=== PATIENT | female | born 1950 | race Caucasian/White ===

== ENCOUNTER 2017-05-28 11:44 | Emergency (ER) | payer OTHER ==
[~2017-05-28] VITALS: Ht 154.9 cm; Wt 56.7 kg
[2017-05-28] MEDS ORDERED: NAPROSYN500 MG PO ×3 (13:35→13:59)
== END 2017-05-28 14:07 | disposition home or self-care (01) ==
LOC: ER 11:44
DX: M25.462 Effusion, left knee (principal); M19.90 Unspecified osteoarthritis, unspecified site; Z88.2 Allergy status to sulfonamides

== ENCOUNTER → 2017-06-07 | Outpatient (CLI) | payer OTHER ==
[~2017-06-07] MED LIST: NAPROSYN500 MG PO
== END ==
LOC: RAD 15:42
DX: M17.12 Unilateral primary osteoarthritis, left knee (principal)

== ENCOUNTER → 2017-07-02 | Outpatient (CLI) | payer OTHER | LOC: MRI 06-22 13:09 | DX: S83.422A Sprain of lateral collateral ligament of left knee, initial encounter (principal); S82.142A Displaced bicondylar fracture of left tibia, initial encounter for closed fracture; S83.512A Sprain of anterior cruciate ligament of left knee, initial encounter; S82.402A Unspecified fracture of shaft of left fibula, initial encounter for closed fracture; S83.242A Other tear of medial meniscus, current injury, left knee, initial encounter; M17.12 Unilateral primary osteoarthritis, left knee; X58.XXXA Exposure to other specified factors, initial encounter; Y93.89 Activity, other specified; Y92.89 Other specified places as the place of occurrence of the external cause; Y99.8 Other external cause status ==

== ENCOUNTER 2021-06-06 21:58 | Emergency (ER) | payer MEDICARE ==
[~2021-06-06] VITALS: Ht 152.4 cm; Wt 47.6 kg
[2021-06-06 23:28] LABS: URINE BILIRUBIN 2+ (Negative); URINE BLOOD NEGATIVE (Negative); URINE CLARITY CLOUDY; URINE COLOR YELLOW; URINE GLUCOSE-RANDOM* NEGATIVE (Negative); URINE KETONES 1+ (Negative); URINE LEUKOCYTES-REFLEX NEGATIVE (Negative); URINE NITRITE-REFLEX NEGATIVE (Negative); URINE PROTEIN (DIPSTICK) 1+ (Negative); URINE SPECIFIC GRAVITY >= 1.030 (1.005-1.035)
[2021-06-06 23:33] LABS: ICTOTEST (BILI CONFIRMATORY) Positive (Negative)
[2021-06-06 23:36] LABS: AMORPHOUS URATES Many /LPF (None Seen); BACTERIA-REFLEX None Seen /HPF (None Seen); CALCIUM OXALATE 0-3 Few /LPF (None Seen); FINE GRANULAR CASTS 0-3 Few /LPF (None Seen); MUCUS 0-3 Light strn/LPF (None Seen); SQUAMOUS None Seen /LPF (0-3); URINE RBC None Seen /HPF (NONE SEEN); URINE WBC-REFLEX None Seen /HPF (0-5)
[2021-06-07 00:40] LABS: HEMATOCRIT 32.6 % (37.0-47.0); HEMOGLOBIN 11.2 gm/dL (12.0-15.0); MCH 34.6 pg (26.0-34.0); MCHC 34.3 g/dL (28.0-37.0); MCV 100.9 fL (80.0-100.0); RBC 3.23 mil/uL (4.20-5.00); RDW 15.1 % (10.5-14.5); WBC 7.6 thou/uL (4.0-11.0)
[2021-06-07 00:55] LABS: CALCIUM 8.3 mg/dL (8.5-10.1); CREATININE 0.8 mg/dL (0.6-1.0); POTASSIUM 3.6 mmol/L (3.5-5.1)
[2021-06-07 01:02] LABS: ALBUMIN 3.5 g/dL (3.4-5.0); TOTAL BILIRUBIN 1.3 mg/dL (0.2-1.0); TOTAL PROTEIN 6.7 g/dL (6.4-8.2)
--- NOTE | 2021-06-07 11:57 | EKG ---
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 : 1950 Requested By: Enrique García Order Number: [id number] MD: Antelmo Stacy Measurements Intervals [place] Rate: 83 P: -86 NM: 171 QRS: -4 QRSD: 91 T: 15 QT: 491 QTc: 577 Interpretive Statements Sinus or ectopic atrial rhythm Compared to ECG 02/14/2009 20:44:53 Ectopic atrial rhythm now present ST (T wave) deviation now present Sinus rhythm no longer present Electronically Signed On 06-07-2021 11:57:24 GLASS WASHER by Antelmo Stacy [email or web address] <ELECTRONICALLY SIGNED> By: Antelmo Stacy MD, [facility] 06/07/21 1157 2340 39 Antelmo Stacy MD, FACC /EPI
[2021-06-07 12:35] VITALS: BP 94/65
== END 2021-06-07 12:38 ==
LOC: ER 21:58
PROVIDERS: Emergency Medicine
DX: R42 Dizziness and giddiness (principal); Z20.822 Contact with and (suspected) exposure to COVID-19; F32.9 Major depressive disorder, single episode, unspecified; R41.0 Disorientation, unspecified; M13.861 Other specified arthritis, right knee; Z79.899 Other long term (current) drug therapy; Z88.2 Allergy status to sulfonamides

== ENCOUNTER 2021-06-07 12:59 | Inpatient (IN) | payer MEDICARE ==
[~2021-06-07] VITALS: Ht 157.5 cm; Wt 54.9 kg
[2021-06-07 14:39] VITALS: BP 103/58
[2021-06-07 15:12] LABS: CHOLESTEROL 129 mg/dL (<200); HDL CHOLESTEROL 62 mg/dL (>40); LDL CHOLESTEROL 59 mg/dL (<100); TC:HDL 2.1 Ratio (Not establshd); TRIGLYCERIDE 43 mg/dL (<150); VLDL 9 mg/dL (<40)
--- NOTE | 2021-06-07 16:08 | NUR ---
71 YR OLD FEMALE ARRIVES TO FLOOR VIA WC FROM ER. DROPPED OFF IN ER 1- PM BY SON KRISTEN WITH REPORTED ABDOMINAL PAIN AND DEPRESSION?. PT DENIES FEELING DEPRESSED DURING ADMIT INTERVIEW-DOES REPORT DECREASED APPETITE D/T RECENT ABDOMINAL PAIN AND STATES SHE "MAY HAVE" LOST WEIGHT. ADMIT WT 116. DOES STATE HAS HAD RECENT STRESS/GRIEF TO GRANDSON WHO SHE REPORTS KILLED HIMSELF RECENTLY. ALSO REPORTS SOME CONFLICT WITH SONS NEW STATING "SHE STRESSES ME OUT I DON'T LIKE HER" IS ORIENTED TO PERSON,PLACE-IDENTIFIES YEAR CORRECTLY AND DATE 06-06. FULL RANGE AFFECT DURING ADMIT INTERVIEW. DENIES SI/SH.NO NOTED OR REPORTED AV HALLUCINATIONS,PARANOIA OR PSYCHOSIS. GAIT UNSTEADY-LIMPING WITH REPORTED RIGHT KNEE PAIN D/T ARTHRITIS. ROLLER WALKER PROVIDED . PLACED ON FALLS PRECAUTIONS. OFFERED AND ACCEPTED FOOD FLUIDS ATE 100 PERCENT OF LUNCH PROVIDED AND LATER GIVEN ENSURE WHICH SHE COMPLETED
--- NOTE | 2021-06-07 16:39 | NUR ---
Met with patient and Dr. Melchor in office. Patient reports son, Delfino, dropped her off on Sunday and did not return. Patient is unsure why he dropped her off. Patient unable to follow most questions and scored a 4 on the SLUMS given by Dr. Melchor. The patient reports to having attended [employer] in , being raised in and having one marriage. The patient's is . He had multiple sclerosis and was unable to walk. 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 The patient reports having a daughter. She states her grandson completed suicide and that her granddaughter, Melissa, is in a really bad situation as told by her mother and doesn't have much time. The patient denies any alcohol and/or substance abuse. She states she has two sisters and that her eldest sister from brain cancer. The patient becomes tearful when talking about her sister's . The patient reports being Cheondoism but not attending quaker. The patient unable to verbalize living arrangements. She stated she would like to get an apartment.
[2021-06-07 18:30] VITALS: BP 98/41
[2021-06-07 19:04] LABS: FOLIC ACID 11.2 ng/mL (8.6-58.9)
--- NOTE | 2021-06-07 20:08 | NUR ---
Assumed care on 06/07/21 @ 1900, in bed awakens to voice, c/o worrying about where she will go when she discharges from the hospital. Theraputic 1:[address] Ba is the patient's PCP. Patient worried about DIL saying she needs to be in a jail and patient not wanting that level of care. Cooperated with assessment, HRRR, Lung sounds CTA bilat, ABD N x 4Q, Reports BM today. Anxiety and Depression present, tearful when discussing her family home life, Denies SI and HI. Will continue to monitor for safety as a high fall risk and comfort. Bed in low position, bed alarm set.
[2021-06-08 07:09] LABS: GLYCOHEMOGLOBIN (HGB A1C) 4.9 % (4.8-5.6)
[2021-06-08 09:22] VITALS: BP 93/52
--- NOTE | 2021-06-08 15:32 | EKG ---
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 : 1950 Requested By: Adonis Melchor Order Number: [id number] MD: Haresh Ortiz Measurements Intervals [place] Rate: 80 P: -18 CA: 147 QRS: 2 QRSD: 87 T: 33 QT: 362 QTc: 418 Interpretive Statements Sinus rhythm versus low atrial rhythm Poor R wave progression Borderline left atrial enlargement Nonspecific ST-T wave change Compared to ECG 06/06/2021 23:40:45 No significant change Electronically Signed On 06-08-2021 15:32:29 EDGE ROLLER by Haresh Ortiz [email or web address] <ELECTRONICALLY SIGNED> By: Haresh Ortiz MD 06/08/21 1532 1252 125 Haresh Ortiz MD /EPI
--- NOTE | 2021-06-08 16:21 | NUR ---
PATIENT HAS BEEN UP, AND OUT ON THE UNIT, AMBULATES WITH ASSIST OF ROLLER WALKER. PATIENT IS ALERT, AND ORIENTED X 3-4 ABLE TO VOICE NEED. SHE IS FORGETFUL, INTERMITTENT CONFUSSION NOTED. PATIENT TOOK MORNING MEDICATION WHOLE WITHOUT DIFFICULTY, SHE IS EATING MEALS, AND DRINKING FLUID WELL. PATIENT DENIES SUICIDAL/HOMICIDAL IDEATION, FOR DEPRESSION/ANXIETY, SHE STATES " IDON'T KNOW". PATIENT DENIES HAVING PHYSICAL PAIN. PATIENT TAKEN TO RADIOLOGY FOR CT-SCAN OF THE HEAD BY THIS COOK APPRENTICE, AND HAS SINCE RETURNED TO THE UNIT. PATIENT STATES SHE WISHES TO "STAY HERE WITH YOU GUYS, I DON'T WANT TO GO TO SNF". AFFECT IS FLAT/BLUNTED, MOOD IS EUTHYMIC. PATIENT PARTICIPATES IN GROUP THERAPY, INTERACTING WELL WITH STAFF/PEERS. NO SIGN OF ACUTE DISTRESS NOTED AT THIS TIME, WILL MONITOR FOR SAFETY.
--- NOTE | 2021-06-08 16:37 | NUR ---
Phone call with patient's son, Delfino. Delfino reports that he brought the patient in to the ER at her request as she expressed experiencing a "nervous breakdown" and needing someone to talk to. Delfino states the patient is homeless. He is unable to have the patient live with him as he currently resides in a 2 bedroom apartment with 5 people in it. Delfino is unemployed but will start working soon. Delfino reports the patient receives $161 a month in pension from the dad as well as $1200 a month from social security. Delfino is not the DPOA but interested in it. Delfino reported he wanted to talk to the patient's doctor, Dr. Ba, before committing to that. Delfino is interested in the patient getting assistance with medication and housing. Delfino does not want the patient's daughter, his sister, involved as he states he does not get along with her. Delfino provided his email address for the [employer] email.
[2021-06-08 19:22] VITALS: BP 104/62
--- NOTE | 2021-06-08 23:37 | NUR ---
ASSUMED CARE ON 06/08/21 @ 1900, IN BED, RESPONDED TO VOICE AND SAT UP, COOPERATING WITH ASSESSMENT AND MEDICATION ADMINISTRATION. REPORTS IS ENCOURAGED ABOUT HER DISCUSSIONS WITH DR. MOREJON AND THE PHLEBOTOMY INSTRUCTOR. DENIES SI/HI, VH/AH, IMPROVEMENT IN DEPRESSION AND REPORTS ONLY SLIGHT ANXIETY. A&OX3-4 WITH CONFUSION NOTED. TYLENOL 650 GIVEN FOR GENERAL PAIN. WANTS EGGS DELETED FROM HER MEAL TRAY, WILL CALL DIETARY WHEN THEY OPEN IN THE A.M.
[2021-06-09 09:31] VITALS: BP 108/60
--- NOTE | 2021-06-09 10:24 | NUR ---
Assess due to admit to [facility]. Visit with pt in day room. States breakfast was "very good." Intake trends since admit 40-100%, plus drank an ensure supplement. Thin stature, but no significant wasting indicated. States usual wt around 115 lb. Vitamin D deficiency, 6.1 and has supplementation ordered. Add 1 ensure daily, otherwise presents low nutrition risk.
--- NOTE | 2021-06-09 13:57 | H ---
[facility] [place] [address] HISTORY AND PHYSICAL Name: PACO QUIROGA Room #: 521A-A ADM IN M.R.#: [id number] Admission: 06/07/21 Attend Phys: Adonis Melchor DO Discharge: Date of : 50 Report #: [id number] THIS REPORT FOR: cc: Dmitry Ba MD, Neal A. MD Kerstein,Adonis Rodriguez DO ~ DATE OF SERVICE: 06/07/2021 INPATIENT PSYCHIATRIC EVALUATION ATTENDING PSYCHIATRIST: Adonis Melchor DO GAMBLING MONITOR: Brody Julian MD REASON FOR ADMISSION: Special note, the patient was reportedly dropped off by her son and he did not stick around. The patient reported she feels like she is having a mental breakdown. HISTORY OF PRESENT ILLNESS: This is a 71-year-old obviously demented female. We are completely lacking collateral at present other than that the patient is a primary care patient of Dr. Dmitry Ba. The patient has no major medical history. Reportedly, does not taking any prescription medications. The patient reported that she has had sadness, not feeling like herself. This has progressed over the last several months. In addition, she has noted herself crying uncontrollably at different points for no reason. She notes she does not take pleasure in things that she used to enjoy, biking and other activities. She also notes that her son was recently and she is not getting along with his . The patient reported to our nurse today that the son's wants her placed. The patient denies any plans to harm herself or others. She does note that intermittently she will feel confused and somewhat dizzy. She denies any pain, dizziness, chest pain, shortness of breath, or other symptoms in the Emergency Room last night, which was at 2305 PAST MEDICAL HISTORY: Psoriatic arthritis in her right knee, takes naproxen 500 mg b.i.d. at home. ALLERGIES: SULFA MEDICATIONS. SOCIAL HISTORY: No history of alcohol, tobacco, or recreational drug use. REVIEW OF SYSTEMS: A 12-point review of systems were done in the ER and was negative except for the psychiatric emotional concerns as noted. Weight for this patient is 52.617 kilograms with BMI of 21.2. LABORATORY DATA: Done in the ER, mostly showed the following: Hematology: She is anemic with hemoglobin and hematocrit 11.2 and 32.6, white count ____, [address] [address] HISTORY AND PHYSICAL Name: PACO QUIROGA Room #: 521A-A [facility] IN [facility]#: [id number] Admission: 06/07/21 Attend Phys: Adonis Melchor, Discharge: Date of : 50 Report #: [id number] platelet count 192. Chemistries: Sodium 134, potassium 3.6, chloride 105, bicarbonate 27, anion gap 12, BUN 12, creatinine 0.8, estimated GFR 71, calcium 8.3, total bilirubin 1.3, direct bilirubin 0.2, AST 14, ALT 17, alkaline phosphatase 56, CK 78. Troponin high sensitivity 94 initially just after midnight and late this morning, it came back at 99. NT-proBNP 93, total protein 6.7, albumin 3.5, triglycerides 43, cholesterol 129, LDL 59, HDL 62. The patient had a presentation remotely here in 2008. Urinalysis, culture was not triggered . She had proteinuria, ketonuria, bilirubinuria most notably. COVID-19 PCR was not detected. She did have an EKG done in the ER, sinus rhythm, QTc was slightly prolonged at 577, QT 491, ME interval 171. We will consider repeating this in another day or so, especially if we are considering any medications that can prolong the QTc. She is a FULL CODE. Today, the patient was a suboptimal historian. She reported she was raised in [place], [place]. Had 2 sisters, her oldest of brain cancer. She was , but her has . She has a grandson who committed suicide. She is of the Taoist jah, but does not actively practice. [facility] Mental Status Examination, the patient scored a 4, repeat of 4/30. The only thing she got was the day of the week, the year. She named 9 animals in a minute and she could identify the largest figure compared with 3 objects. Everything else was 0. Most certainly qualifies her for an advanced major neurocognitive disorder. PHYSICAL EXAMINATION: VITAL SIGNS: Today, temperature 36.9, pulse 79, respirations 12, BP 103/50, O2 sat 99%. MUSCULOSKELETAL: Somewhat frail, age-appearing female in yellow full shirt. The patient does have a grossly abnormal gait with bilateral leg weakness. We did give her a walker, but she is a high fall risk. MENTAL STATUS EXAMINATION: Well-developed, somewhat ill-appearing, bow-legged female, appearing stated age. Attention impaired. Concentration impaired. Speech normal in rate. Thought process: Linear and goal oriented. Thought content: focused on the present. Denied suicidal ideation. Denied homicidal ideation, auditory, visual or tactile hallucinations. Some helplessness, a little hopelessness. Memory grossly impaired for delayed recall, acute memory and other aspects. Insight and judgment were quite limited. Fund of knowledge is diminished. Her level of education is high school graduate. She denied being physically, sexually or emotionally abused throughout her life. It was [facility] [address] [place] [address] HISTORY AND PHYSICAL Name: PACO QUIROGA Room #: 521A-A ADM IN ..#: [id number] Admission: 06/07/21 Attend Phys: Adonis Melchor DO Discharge: Date of : 50 Report #: [id number] unclear to her if she has had a family history of dementia including Alzheimer's disease. FORMULATION: A 71-year-old female dropped off reportedly by her son. I did contact Dr. Ba's office. They gave me numbers for the son of [phone]. There was a second number that Dr. Ba himself relayed to me; however, there was no return calls initially. The son did call me back later in the day. DIAGNOSES: At this time, major neurocognitive disorder, likely due to Alzheimer's disease, advanced; unspecified depression; it sounds like she has major depressive disorder. Morbidities are arthritis, gait abnormality. PLAN: Admitted to Geriatric Psychiatry. Evaluate, stabilize, obtain collateral. Allergies are SULFA DRUGS. I placed her on Senna/Dpocusate 2 tabs PO BID. Otherwise, house PRNs. I will need to find out if Dr. Ba has worked her up for causes of dementia. I am not inclined to do a big workup if he has. We have concerns regarding her son and family, the patient being dropped off and not following continuity of caring for the mother. If I do not hear back from son tomorrow morning, I will consider notifying the authorities including [facility] that if there is a potential abandonment situation. The patient's insurance by the way is [employer] Medicare Senior Plan, which is a managed plan, so they will quickly deny coverage if this is just a alf stay. STRENGTHS: She is insured. WEAKNESSES: Family unable to contact at the moment. I do not know if she has a DPOA, documents, so largely psychosocial. Time spent on this case at least 60 minutes, greater than 50% of time was spent in review of records and coordination of care. <ELECTRONICALLY SIGNED> By: Adonis Melchor DO 06/09/21 1357 [id number] [id number] Adonis Melchor DO /nt
--- NOTE | 2021-06-09 16:12 | NUR ---
Email to [employer] for Medicaid for patient
--- NOTE | 2021-06-09 17:15 | NUR ---
PT ASSESSED AT START OF SHIFT. HAS BEEN CALM AND PLEASANT. SMILING AT TIMES. PARTICIPATED IN GROUP ACTIVITIES. APPETITE HAS BEEN GOOD AND TAKING SUPPLEMENT AT LUNCH.
[2021-06-09 19:21] VITALS: BP 137/71
--- NOTE | 2021-06-10 00:20 | NUR ---
At onset of overnight cashier pt was resting in bed sleeping. This shift pt was alert and oriented x3. Pt was compliant with medication and vital signs. Pt denied SI, HI and AVH. Pt's thought process was disorganized. Pt stated that she wants to go see her primary care physician and stated she could probably walk there from [place]. Pt stated that she understands her son wants to place her in a penitentiary, but she wants to be able to see mutliple options before they decide to place her somewhere. Pt's affect was constricted and speech was clear, however pt had a difficult time finding the right word. Fall precautions are in place. Will continue to monitor.
[2021-06-10 10:29] VITALS: BP 94/43
--- NOTE | 2021-06-10 16:20 | NUR ---
patient is alert and oriented x2, calm, pleasant, and cooperative. sat in the dining room, coloring her color books, good appetite. Patient used the walker to bathroom. Voided per toilet x2, had a BM yesterday, no pain.
--- NOTE | 2021-06-10 16:55 | NUR ---
Check in with patient. Patient doing well. Medicaid application completed with patient.
[2021-06-10 19:46] VITALS: BP 118/50
--- NOTE | 2021-06-10 23:24 | NUR ---
At onset of overnight stocker pt was sitting in bed awake. This shift pt was alert and oriented to self and place. Pt stated the date was January 05, 2022, but did state she was coloring something for her son for Apoorva's day. Pt denied SI, HI and AVH. Pt was compliant with medication. Pt's affect was constricted. Pt was mostly calm, pleasant and cooperative. Pt's speech was clear and tangential. Pt talked about still wanting to see her PCP Dr. Mckeon. Pt talked about her son applying for new jobs to be closer to her. Pt stated there isn't room for her at her son's house. Pt talked about maybe living with someone at her judaism or living in an empty house her cousin owns. Pt is a high fall risk. Fall precautions are in place. Will continue to monitor.
[2021-06-11 09:19] VITALS: BP 98/46
--- NOTE | 2021-06-11 11:46 | NUR ---
PATIENT CARE ASSUMED AT 0700 - IN ROOM WHEN APPROACHED. PLEASANT AND SOCIAL. STATED HAD GOOD SLEEP - STATED WAS HERE DUE TO INABILITY OF SON CARING FOR HER. HOPING SUITABLE PLACEMENT FOUND FOR HER. PATIENT AMBULATES WITH WALKER - HAS LIMP - DENIES ANY S/I OR H/I - CONFUSED ALERT 1-2 - ABLE TO TELL THIS FRIT COATER DAY AND MONTH. PATIENT COMPLIANT WITH MEDICATIONS - WILL CONTINUE TO MONITOR PATIENT FOR SAFETY AND ADDRESS ANY FURTHER CONCERNS.
[2021-06-11 20:03] VITALS: BP 107/44
--- NOTE | 2021-06-12 03:13 | NUR ---
At onset of overnight babysitter pt was sitting in day room watching TV and socializing with peers. This shift pt was oriented to self, date and place. Pt was compliant with medication and vital signs. Pt stated she had a bowel movement today. Pt shared that she had a good day and is in a good mood. Pt stated she has made some friends here and is working on coloring pages for other patients. Pt denied SI. Pt is a high fall risk. Fall precautions in place. Will continue to monitor.
[2021-06-12 07:32] VITALS: BP 91/42
[2021-06-12 09:15] VITALS: BP 91/42
--- NOTE | 2021-06-12 15:27 | NUR ---
Assumed pt care this morning from overnight shift. Pt presented pleasant and calm during this time, and was cooperative with cares. Pt was oriented to self and place only at this time and presented confused during assessment. Pt denied any depression and anxiety at this time, and shook head, stating now when asked if she had any suicidal or homicidal thoughts. Pt denied hallucinations at this time. Pt denied pain, but stated that her chest did ache when she moved, and that she had a family history of cardiac issues. Provider informed. Per provider report, after provider spoke to pt, pt stated that this was issue from several days ago and that she did not want follow up. Pt asked if her sade hooks, yarn, and out craft supplies that she had could be brought up to unit, but was informed that this was closed unit and that these presented risk to pt. Pt voiced understanding. Lung sounds clear. Bowel sounds active. Last BM 06/12/21. No further concerns.
[2021-06-12 19:12] VITALS: BP 109/60
--- NOTE | 2021-06-13 05:55 | NUR ---
patient isolative this shift. patient aox1 confused and forgetful. patient had a flat affect, poor eye contact, fair grooming and hygiene. patient in bed asleep at this time breathing regular and unlaboured.
[2021-06-13 08:08] VITALS: BP 105/46
[2021-06-13 09:15] VITALS: BP 105/46
[2021-06-13 09:54] VITALS: BP 105/46
--- NOTE | 2021-06-13 18:14 | NUR ---
Assumed pt care from overnight shift this am. Pt presented in calm and pleasant mood this morning, and was alert and oriented to self and place at this time. Pt denied depression and anxiety at this time. Pt also denied any si/hi at this time. Pt denied pain during assessment as well. Pt also stated no hallucinations during this time. Pt voiced wanting to get clothing out of locker, but clothing was inappropriate for unit as it obscured her yellow shift. Stated that she had an appointment with on and that her son would be here. Provider aware. Lung sounds clear. Bowel sounds active. Meds whole with no issue. Participated in groups with peers. No further concerns at this time.
[2021-06-13 19:40] VITALS: BP 105/46
[2021-06-13 22:39] VITALS: BP 134/88
--- NOTE | 2021-06-14 00:26 | NUR ---
PATIENT CARE WAS RESUMED AT 1900+6 PATIENT CARE WAS RESUMED AT 1900. SHE IS ALERT AND ABLE TO COMMUNICATE HER NEEDS AND CONCERN. LUNGS ARE CLEAR, BS ACTIVE X4 QUADS. SHE DENIES SI/AVH/HI. SHE IS CONTINIET OF BOWEL AND BLADDER. ABD IS SOFT, NON TENDER. SHE TOOK HER MEDS WHOLE. SHE IS HAPPY THAT SHE SPOKE WITH HER SON. BED IS LOW, LOCKED AND ALARMED. NO 0. PATIENT CARE WAS RESUMED AT 1900. SHE IS ALERT AND SHE AMBULATES. ABLE TO VERBALIZE SOME NEEDS. LUNGS ARE CLEAR, BS ACTIVE X4 QUADS. SHE IS CONTINIET OF BOWEL AND BLADDER. SHE TOOK HER MEDS WHOLE. DENIES PAINS.SI/AVH/HI. BED IS LOW, LOCKED. SHE IS HAPPY THAT SHE SPOKE WITH HER SON. SHE IS CALM AND COOPERATIVE WITH CARE. CONTINUE TO MONITOR
[2021-06-14 10:01] VITALS: BP 95/45
--- NOTE | 2021-06-14 10:32 | NUR ---
Referral faxed to: - [facility] ([facility], [facility], [facility], [facility], [facility], [facility], [facility], [facility], [facility], [facility], [facility])
--- NOTE | 2021-06-14 12:48 | NUR ---
Alert and orientated X 2. Denies SI/HI. Breath sounds clear. Reg HR auscultated. Color pink with brisk capillary refill and palpable peripheral pulses. Independent with voiding. Active bowel sounds over soft, rounded abdomen. Ambulates with walker with regular, steady gait. Participating in groups.
[2021-06-14 19:30] VITALS: BP 119/65
[2021-06-14 19:50] VITALS: BP 119/65
[2021-06-14 23:06] LABS: SYPHILIS AB Non Reactive (Non Reactive)
--- NOTE | 2021-06-15 | NUR ---
[facility] C[facility] WAS RESUM[facility] AT 1900. SHE IS AWAKE SITTING IN THE DINING AREA. LUNGS ARE CLEAR BS ACTIVE X4 QUAD. ABD IS SOFT AND NON TENDER. SHE IS ABLE TO VERBALLIZE HER NEEDS. SHE TOOK HER MEDS WHOLE AND DENIES PAINS/SI/AVH/HI. SHE AMBULATES WITH WALKER. CONTINIET OF BOWEL AND BLADDER. SHE IS VERY PLEASANT AND COOPERAIVE WITH CARE. BED IS LOW, LOCKED AND ALARMED.
--- NOTE | 2021-06-15 08:34 | NUR ---
Followup: eating 85-100% of meals. No new nutrition concerns, remains low nutrition risk
[2021-06-15 10:35] VITALS: BP 93/51
--- NOTE | 2021-06-15 10:37 | NUR ---
PLEASANT ON COOPERATIVE SO FAR THIS SHIFT-VISIBLE IN [place] ATTENDING SCHEDULED GROUPS AND SITS WITH FEMALE PEERS TO EAT MEALS. FULL RANGE AFFECT. DENIES SI/SH/HI. NO NOTED OR REPORTED ACUTE ANXIETY OR PSYCHOSIS. USING ROLLER WALKER TO GET AROUND UNIT AND GAIT IS STEADY WITH ASSISTIVE DEVICE. INDEPENDENT IN DRESSING,TOILETING AND FEEDING-DID REQUIRE ASSIST THIS AM WITH SHOWER/SHAMPOO. DENIES PAIN. ORIENTED TO PERSON-STATES IS AT "DR OFFICE-JUST WAITING FOR MY SON"
--- NOTE | 2021-06-15 16:31 | NUR ---
Phone message received from Afsaneh Lozano ([phone]), family member, regarding patient and placement of patient.
[2021-06-15 19:22] VITALS: BP 112/55
--- NOTE | 2021-06-16 04:37 | NUR ---
PATIENT CARE WAS RESUMED AT 1900. SHE IS ALERT AND ORIENTED. AMBULATES WITH WALKER. LUNGS ARE CLEAR BS ACTIVE X4 QUADS. SHE IS CONTINENT OF BOWEL AND BLADDER. SHE DENIES PAINS /SI/AVH/HI. SHE TOOK HER MEDS WHOLE. CO-OPERATIVE WITH CARE. NO CONCERN NOTED AT THIS TIME.BED IS LOW AND LOCKED. [id number] CHECK ONGOING. NON SKID SOCKS AND YELLOW TOP ON.
[2021-06-16 10:06] VITALS: BP 94/55
--- NOTE | 2021-06-16 11:03 | NUR ---
Alert and orientated to person and place. Denies SI/HI. Breath sounds clear. Reg HR auscultated. Color pink with brisk capillary refill and palpable peripheral pulses. No edema noted. Brief dry. Active bowel sounds over soft, flat abdomen. Ambulates with regular, steady gait with walker.
[2021-06-16 11:20] VITALS: BP 105/51
--- NOTE | 2021-06-16 15:10 | NUR ---
Phone call to [facility] to determine if the patient had been accepted. ARMANDO spoke to Jessi who reported that the facility has to wait until Sunday as the senior financial reporting analyst has to review and she is out until Sunday.
[2021-06-16 19:28] VITALS: BP 109/56
--- NOTE | 2021-06-17 05:01 | NUR ---
PATIENT DOING WELL ON THE UNIT THIS EVENING. SHE IS AAOX3 AND FOLLOWS ALL COMMANDS AND PROMPTS. STATES THAT SHE HAD SOME STOMACH DISCOMFORT EARLIER TODAY BUT FELT BETTER AFTER BM. SHE IS COMPLIANT WITH HER MEDICATIONS. VSS. ALL SAFETY PRECAUTIONS ARE IN PLACE. WILL CONTINUE TO MONITOR FOR CHANGES IN PATIENT STATUS.
[2021-06-17 09:01] VITALS: BP 107/67
--- NOTE | 2021-06-17 11:45 | NUR ---
COOPERATIVE AND PLEASANT THIS AM. VISIBLE IN [place] ATTENDING SCHEDULED ACTIVITIES-SOCIAL WITH PEERS AND INDEPENDENT IN EATING,AMBULATING AND TOILETING. DENIES Pain/DISCOMFORT. USING ROLLER WALKER FOR AMBULATION AND GAIT IS STEADY WITH USE OF WALKER. ORIENTED TO NAME ONLY-STATES SHE IS AWARE AT HOSPITAL BUT UNABLE TO ID NAME OF HOSPITAL OR WHY SHE IS HERE. DENIES SI/SH/HI. NO ACUTE ANXIETY/PSYCHOSIS NOTED OR REPORTED. EATING WELL AND TAKES MEDS WITHOUT RESISTANT. DESCRIBES MOOD "PRETTY GOOD" BM TODAY-BS ACTIVE X4-LUNGS CTA.
--- NOTE | 2021-06-17 17:17 | NUR ---
Email from [facility] stating denied patient.
[2021-06-17 19:44] VITALS: BP 111/48
--- NOTE | 2021-06-18 05:20 | NUR ---
Assumed care of pt at 1900. Pt calm et cooperative this shift. Took medications whole without difficulty. Ambulates the halls ad micaela with assistance of walker with steady gait. Socialized with peers in dayroom watching TV until HS. VSWNL. Health assessment with no abnormalities noted this shift. Denies SI/HI at present time. Currently resting in bed with eyes closed. Will continue to monitor per unit protocol.
[2021-06-18 10:20] VITALS: BP 110/68
--- NOTE | 2021-06-18 13:19 | NUR ---
RESUMMED CARE FROM OVERNIGHT SHIFT THIS AM, PATIENT IN DAY ROOM SITTING QUIET. PATIENT ALERT ORIENTED TIMES 3-4 PATIENT ATE BREAKFAST TOOK MEDICATION WITHOUT INCIDENCE. PATIENT DENIES SI/HI/AH/VH AT PRESENT PATIENTS ABDOMEN SOFT BOWEL SOUNDS PRESENT. PATIENTS LUNGS CLEAR PATIENT PARTICIPATES IN GROUPS HAS NOT DISPLAYED ANY BEHAVIORS. PATIENT STATES DEPRESSION A 2 NO ANXIETY PATIENT PLEASANT. WILL CONTINUE TO MONITOR PATIENT FOR SAFETY AND BEHAVIORS.
--- NOTE | 2021-06-19 06:12 | NUR ---
Assumed care of pt at 1900. Pt calm et cooperative this shift. Took medications whole without difficulty. Ambulates the halls ad micaela with steady gait. VSWNL. Health assessment with no abnormalities noted at present time. Denies SI/HI at present time. Socialized with peers in dayroom watching TV until HS. Currently resting in bed with eyes closed. Will continue to monotor per unit protocol.
[2021-06-19 09:37] VITALS: BP 98/45
--- NOTE | 2021-06-19 15:02 | NUR ---
VISIBLE ON UNIT ATTENDING SCHEDULED ACTIVITES AND MEALS IN DAYROOM. PLEASANT AND SMILING DURING 1 INTERACTION WITH NURSING STAFF. DENIES C/O PAIN/DISCOMFORT. ACTIVE BS-NO COUGH. AFEBRILE. GAIT STEADY WITHOUT ASSISTIVE DEVICES. IS ORIENTED TO PERSON AND PLACE. DOES REPORT DURING THAT SHE WORRIES ABOUT HER SON AND HAS NOT HEARD FROM HIM AND HOPES HE IS OK. NO NOTED OR REPORTED PSYCHOSIS/ACUTE ANXIETY. APPETITE GOOD.GAIT STEADY WITH USE OF ROLLER WALKER.
[2021-06-19 20:50] VITALS: BP 98/55
--- NOTE | 2021-06-20 00:24 | NUR ---
PATIENT SAT UP IN DINING ROOM THIS EVENING WITH OTHERS. SHE HAS BEEN CALM AND COOPERATIVE. SHE HAS BEEN PLEASANT. SHE WAS GIVEN TYLENOL 650MG PO FOR NONCARDIAC CHEST PAIN. THIS DID HELP AND PATIENT DOES NOT HAVE ANY OTHER SYMPTOMS. PATIENT IS INDEPENDENT WITH CARES. SHE IS A/0X2. TOOK HER MEDS WHOLE WITH WATER. ROUTINE ROUNDS TO ASSESS SAFETY AND STATUS OF PATIENT.
[2021-06-20 05:44] LABS: HEMATOCRIT 31.3 % (37.0-47.0); HEMOGLOBIN 10.4 gm/dL (12.0-15.0); MCH 34.2 pg (26.0-34.0); MCHC 33.3 g/dL (28.0-37.0); MCV 102.5 fL (80.0-100.0); RBC 3.05 mil/uL (4.20-5.00); RDW 15.3 % (10.5-14.5); WBC 7.7 thou/uL (4.0-11.0)
[2021-06-20 06:26] LABS: CALCIUM 8.3 mg/dL (8.5-10.1); CREATININE 0.7 mg/dL (0.6-1.0); MAGNESIUM 2.2 mg/dL (1.8-2.4); POTASSIUM 3.8 mmol/L (3.5-5.1)
[2021-06-20 06:28] VITALS: BP 108/50
[2021-06-20 12:50] VITALS: BP 108/50
--- NOTE | 2021-06-20 14:30 | NUR ---
RESUMMED CARE FROM OVERNIGHT SHIFT THIS AM, PATIENT ALERT ORIENTED TO SELF AND SITUATION. PATIENT DAY ROOM WAITING ON BREAKFAST PATIENT ATE TOOK MEDICATION WITHOUT INCIDENCE. PATIENT DENIES SI/HI/AH/VH AT PRESENT PATIENTS ABDOMEN SOFT BOWEL SOUNDS PRESENT. PATIENTS LUNGS CLEAR PATIENT DENIES DEPRESSION OR ANXIETY. PATIENT TALKS WITH FEMALE PATIENTS PATIENT PARTICIPATES IN GROUP HAS NOT DISPLAYED ANY BEHAVIORS. WILL CONTINUE TO MONITOR PATIENT FOR SAFETY AND BEHAVIORS.
--- NOTE | 2021-06-20 16:35 | NUR ---
Pt was observed in the day room throughout the afternoon and participated in both the social work group therapy session and the rec group session. Pt indicated she finds a source of strength from her family. Pt engaged in group with peers and one-on-one with the SW. Pt shared that she is working on improving her memory and she reports seeing positive results and remembers more. Pt's demeaor appeared considerate, conversational, and sentimental. Pt's affect appeared appropriate to setting.
[2021-06-20 19:55] VITALS: BP 100/68
[2021-06-20 20:46] VITALS: BP 100/63
--- NOTE | 2021-06-20 21:09 | NUR ---
RESUMMED CARE FROM DAY SHIFT THIS EVENING PATIENT IN DAY ROOM TALKING WITH OTHER PATIENTS. PATIENT DENIES SI/HI/AH/VH AT PRESENT PATIENT ALERT TO SELF AND SITUATION. PATIENTS ABDOMEN SOFT BOWEL SOUNDS PRESENT PATIENTS LUNGS CLEAR. PATIENT PLEASANT CALM COOPERATIVE TAKES MEDICATION WHOLE WITHOUT INCIDENCE. PATIENT DENIES ANXIETY OR DEPRESSION WILL CONTINUE TO MONITOR PATIENT FOR SAFETY AND BEHAVIORS.
--- NOTE | 2021-06-21 08:07 | NUR ---
RT Progress Note- Flores has been present in recreation therapy groups throughout the last 7 day review period. She remains cordial and does engage when prompted, with mild confusion displayed. Flores has not displayed negative behaviors during interactions with staff or peers, and does engage socially when approached. PROJECTS MANAGER will continue to encourage patient participation.
--- NOTE | 2021-06-21 08:36 | NUR ---
Phone call to ana lilia Mccartney. Spoke to Ruel in Admissions. Was informed that the patient is accepted but that there is currently no bed availability. Once a bed is available, they will let the SW know.
--- NOTE | 2021-06-21 09:57 | NUR ---
Followup: eating 75-100% meals and drinks supplement. Wt up 4 lb. Remains low nutrition risk.
[2021-06-21 13:03] VITALS: BP 114/92
--- NOTE | 2021-06-21 14:00 | NUR ---
Resummed care of patient @0700: Patient was located in her room resting comfortably. Patient was woken up by staff to attend breakfast. No S/O of acute distress noted. A&O*3 - intermittent confusion, forgerfulness. Patient presents calm, pleasent and very hopeful for her futute. Patient stated she was very thankful for this place, and believed it has really helped her. Patients troponin levels were elevated on 06/21/21, EKG was completed today for follow up. Results were reviewed. BSP*4.NT.ND Lung sounds are clear bilaterally, although patient C/O increased SOB when lying in bed. Swelling is present in the Left knee, NT. Patient ambulates with a walker, gait visualized steady. Low-Fall precautions are in place at this time. Denied SI/HI/AVH. Denied depression and anxiety. States " I'm just anxious about when I can go home." VSS on RoomAir. Will continue to monitior per [facility] Protocol.
[2021-06-21 21:15] VITALS: BP 113/48
--- NOTE | 2021-06-21 22:25 | NUR ---
RESUMMED CARE FROM DAY SHIFT THIS EVENING PATIENT IS ON COVID ISOLATION DUE TO POSITIVE PCR FROM MORNING LABS. PATIENT HAD A REPEAT PCR TEST THAT WE HAVE NOT RECIEVED RESULTS. PATIENT ALERT ORIENTED TIMES 3 PATIENT DENIES SI/HI/AH/VH AT PRESENT. PATIENTS ABDOMEN SOFT BOWEL SOUNDS PRESENT PATIENT LUNGS CLEAR. PATIENT DENIES DEPRESSION HAS ANXIETY WHICH SHE RATES A 2, PATIENT THANKED ME FOR TAKING SUCH GOOD CARE OF HER. PATIENT CALM COOPERATIVE ATE DINNER TOOK MEDICATION WITHOUT INCIDENCE. WILL CONTINUE TO MONITOR PATIENT FOR SAFETY AND BEHAVIORS.
--- NOTE | 2021-06-22 01:25 | NUR ---
This RN assumed patient care at 0100. At this time pt was resting calmly in bed. Pt is on covid isolation precautions. Pt is low fall risk. Will continue to monitor.
--- NOTE | 2021-06-22 07:17 | EKG ---
[address] [address] ELECTROCARDIOGRAM REPORT Name: PACO QUIROGA Tg Room #: 526B-B ADM IN M.R.#: [id number] Admission: 06/07/21 Attend Phys: Adonis Melchor, DO Discharge: Date of : 50 Report #: [id number] [facility] Test Date: 2021-06-21 Test Time: 13:41:22 Pat Name: PACO QUIROGA Department: Room: 52 B Gender: F Lemon Grower: LUIS : 1950 Requested By: Adonis Melchor Order Number: [id number] MD: Antelmo Stacy Measurements Intervals [place] Rate: 82 P: 73 KS: 171 QRS: 16 QRSD: 84 T: 62 QT: 370 QTc: 432 Interpretive Statements Sinus rhythm Compared to ECG 06/08/2021 12:52:10 Poor R-wave progression no longer present Electronically Signed On 06-22-2021 7:17:22 TEMPERATURE REGULATOR PYROMETER by Antelmo Stacy [email or web address] <ELECTRONICALLY SIGNED> By: Antelmo Stacy MD, [facility] 06/22/21 0717 1341 40 Antelmo Stacy MD, FACC /EPI
[2021-06-22 09:10] VITALS: BP 113/48
[2021-06-22] MEDS ORDERED: CALTRATE-600 W1 EACH PO (11:54)
[2021-06-22] MEDS ORDERED: VITAMIN D325 MC2 PO (11:56)
[2021-06-22] MEDS ORDERED: STIMULANT LAXA1 EACH PO (11:56)
--- NOTE | 2021-06-22 12:12 | NUR ---
Phone call to Delfino - Voice message stating patient is moving to a different floor due to testing Covid positive, continue looking for placement, has been accepted at the [facility] but currently no bed availability and will email a copy of the DPOA.
--- NOTE | 2021-06-22 17:03 | NUR ---
Assumed pt care from overnight shift this am. Pt presented calm and cooperative during this time, and was oriented to person and place. Pt took all medications whole and well tolerated. Denied anxiety/depression. Denied hallucinations. No reported si/hi. No pain reported. Pt taken to 3W after covid positive tests though remains asymptomic per report of pt- denies SOB, cough; no fever noted. Report given to ARLIN Phillips and pt taken off unit @ 5pm. All belongings taken with pt at time of discharge to new unit. No further concerns at this time.
--- NOTE | 2021-06-25 16:11 | D ---
[facility] [place] [address] DISCHARGE SUMMARY Name: PACO QUIROGA Room #: 526B-B DIS IN M.R.#: [id number] Admission: 06/07/21 Attend Phys: Adonis Melchor DO Discharge: 06/22/21 Date of : 50 Report #: [id number] THIS REPORT FOR: cc: Dmitry Ba MD, Neal A. MD Kerstein,Adonis Rodriguez DO ~ DATE OF SERVICE: 06/22/2021 INPATIENT PSYCHIATRIC DISCHARGE SUMMARY ATTENDING PSYCHIATRIST: Adonis Melchor DO DATAPOWER CONSULTANT: Brody Julian MD DISCHARGE DIAGNOSES: 1. U07.1, acute coronavirus infection. 2. Major neurocognitive disorder, likely due to Alzheimer's disease without behavioral disturbance at this point. The patient is being discharged to the [facility] through [facility] for COVID isolation. Medical care will be per the hospitalist service. DISCHARGE MEDICATIONS: The patient's medications at the time of discharge will be calcium carbonate 500 mg oral 3 times a day for supplementation, senna docusate 2 tablets oral twice a day for bowel motility, vitamin D3 5000 international units oral daily for supplementation. LABORATORY DATA: Significant laboratories at time of discharge are as follows: Most recent hematology on 06/20: H and H of 7.4 and 31.3, white count 7.7, platelet count 157. Chemistries: Sodium 144, potassium 3.8, chloride 106, bicarbonate 30, anion gap 8, BUN 20, creatinine 0.7, estimated GFR 82, glucose 75, calcium 8.3, magnesium 2.2. Troponin I high sensitivity of 81. COVID-19 results were not detected before and positive on the 21 June at 5:10 and repeat positive on the 21 June at 1600. MICROBIOLOGY: This admission was none. IMAGING: This admission, head CT on 06/08, which was read as no acute abnormalities, mild symmetric cerebral volume loss, age appropriate. She had an EKG done on 06/08 which showed sinus rhythm, QTc 418, QT 362 milliseconds, LA interval 147 milliseconds, ventricular rate of 80. DIET: The patient's diet at time of discharge is regular. ACTIVITY LEVEL: As tolerated. No alcohol, no illicit drugs. The patient requires 24/ care and supervision. [address] [address] DISCHARGE SUMMARY Name: PACO QUIROGA Tg Room #: 526B-B [facility] IN ..#: [id number] Admission: 06/07/21 Attend Phys: Adonis TravKacie Melchor DO Discharge: 06/22/21 Date of : 50 Report #: [id number] REASON FOR ADMISSION: A 71-year-old female brought to the Emergency Room by her son, Delfino. The patient was crying uncontrollably, paranoid, guarded. Apparently, the family had been homeless for several days prior to admission and with this emotional trauma patient had declined. HOSPITAL COURSE: The patient was admitted to Geriatric Psychiatry Unit. Discussion was had with the family as well as the primary care physician, Dr. Dmitry Ba, somewhere between 10/2020 and present. The patient's cognition has deteriorated. I elected to go ahead and do a dementia workup. Vitamin D was absolutely low at 6.1. Folate was 11.2. TSH 0.740, free T4 1.0, B12 of 634. In terms of serology, syphilis serology was nonreactive. The patient's [facility] mental status exam score was absolutely low at 4/30 with good effort by the patient. We had quite a bit of difficulty getting the patient placed. Her Medicaid application was done. Medicaid pending status did not help and then to make matters more challenging, the patient turned out positive on surveillance COVID testing on the [facility] Unit. Given the fact we cannot do airborne isolation, it is very contagious, the patient had to be discharged to a medical unit. PHYSICAL EXAMINATION: VITAL SIGNS: At time of discharge, temperature 36.2, pulse 93, respirations 17, BP 113/48, O2 sat 95% on 06/22. MENTAL STATUS EXAMINATION: Well-developed female. 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 She uses a walker, but is fairly spry. Well-developed, slightly younger than age-appearing female. Attention and concentration limited. Speech normal in rate. Thought process: Linear and goal directed. Thought content: Focused on the present. Denied SI, HI, auditory or visual type hallucinations. Denied hopelessness, helplessness. Mood and affect was euthymic, congruent, fair range. Memory known to be impaired. Insight and judgment limited. Fund of knowledge below average. PROGNOSIS: For this patient is guarded given that she has a neurocognitive disorder and certainly hopeful that no complications of the acute coronavirus infection will occur. I will be happy to consult on while she is on the medical unit at the hospitalist's discretion and if requested. <ELECTRONICALLY SIGNED> By: Adonis Melchor DO 06/25/211610 99 31 Adonis Melchor DO /nt
== END 2021-06-22 17:00 | disposition short-term general hospital (02) | DRG 56 ==
LOC: SBH 12:59
PROVIDERS: Hospitalist; Internal Medicine; ADMIT Psychiatry & Neurology Psychiatry; ATTEND Psychiatry & Neurology Psychiatry
DX: G30.9 Alzheimer's disease, unspecified (principal); U07.1 COVID-19; F02.81 Dementia in other diseases classified elsewhere, unspecified severity, with behavioral disturbance; E55.9 Vitamin D deficiency, unspecified; F32.9 Major depressive disorder, single episode, unspecified; R26.9 Unspecified abnormalities of gait and mobility; M17.12 Unilateral primary osteoarthritis, left knee; D64.9 Anemia, unspecified; R77.8 Other specified abnormalities of plasma proteins; D75.89 Other specified diseases of blood and blood-forming organs; R53.81 Other malaise; L40.50 Arthropathic psoriasis, unspecified; Z79.899 Other long term (current) drug therapy; Z88.2 Allergy status to sulfonamides
CPT/HCPCS: 10880

== ENCOUNTER 2021-06-22 12:36 | Inpatient (IN) | payer MEDICARE ==
[~2021-06-22] VITALS: Ht 157.5 cm; Wt 50.8 kg
[~2021-06-22 12:36] MED LIST changes: +CALTRATE-600 W1 EACH PO; +STIMULANT LAXA1 EACH PO; +VITAMIN D325 MC2 PO
[2021-06-22 15:45] VITALS: BP 123/79
--- NOTE | 2021-06-22 18:21 | NUR ---
ADMISSION NOTE: PT ADMITTED FROM [facility] TO ROOM 357. ALERT AND OIRNETED X3. PLESANT AND CALM. FOLLOW COMMANDS AND REDIRECTABLE. PT ORIENTED TO ROOM. ADMISSION AND ASSESSMENT COMPLETED. M/S STATUS. DR. WHITT NOTIFIED ABOUT PT BEING ON . SKIN INTACT. FALL AND ENHANCED PRECAUTIONS IN PLACE. DENIES ANY NEED AT MOMENT. WILL CONTINUE TO MONITOR.
[2021-06-22 18:43] VITALS: BP 134/72
[2021-06-22 19:20] VITALS: BP 134/72
--- NOTE | 2021-06-23 00:20 | NUR ---
This RN assumed care of patient at 1845. Patient is found to be alert and oriented x4. Patient has a few moments during this RN's assessment that patient appears to not comprehend what this RN is saying but does well when information is restated a different way. Patient is on enhanced precautions. Patient is on room air and reports that she doesnt feel short of breath or even sick. Patient asks this RN if she is sure that she has covid. Patient is med/ surge status. Patients last BM was 06/22/21. Patient is continent of urine this shift and gets up x1 assist with a walker to the toilet. Patient has no skin issues at this time. Patient has no IV access at this time. Patient will continue to be monitored.
[2021-06-23 08:41] VITALS: BP 129/73
--- NOTE | 2021-06-23 12:58 | NUR ---
CARE ASSUMED THIS AM, PT ALERT AND ORIENTED X3-4. CALM AND APPROPRIATE. CONTINUE TO BE ON ROOM AIR, NO SIGNS OF DISTRESS. PT HAS SOME COUGH, NONPRODUCTIVE. UP AD KARTIK TO BATHROOM. ISOLATION FOR COVID MAINTAINED. DENIES ANY NNEEDS AGUSTIN.
--- NOTE | 2021-06-23 15:35 | NUR ---
PER ARMANDO, AMBREEN INITIAL ASSESSMENT: ARMANDO spoke with nursing and attending physician. Pt was admitted from -[facility] unit after having positive COVID test yesterday. Pt is asymptomatic. Pt will need placement upon discharge. Psych to be consulted. Pt may discharge back to [facility] when out of Enhanced Isolation. ARMANDO is following to assist as needed with discharge planning. THUAN Pro
[2021-06-23 16:02] VITALS: BP 117/66
--- NOTE | 2021-06-23 17:58 | NUR ---
Referral fax[facility] to the following: [facility] [phone] [facility] [phone] [facility] [phone] [facility] [phone] Delfino Nicole [phone] [facility] [phone] [facility] [phone] [facility] [phone] [facility] [phone] Cam[facility] [phone] (ARMANDO Price emailed to [facility] in Admissions) [facility]- no beds, waitlist [facility]- no beds, wait list [facility]- no beds ARMANDO team will follow up
[2021-06-23 20:25] VITALS: BP 124/77
[2021-06-24 05:09] VITALS: BP 111/75
--- NOTE | 2021-06-24 05:46 | NUR ---
PT A&OX3, ON ISOLATION DUE TO POSITIVE COVID STATUS. PT WITH SLIGHT NON-PRODUCTIVE COUGH NOTED, OTHERWISE WITHOUT SYMPTOMS. ON ROOM AIR, VSS THROUGHOUT THE SHIFT. PT REMINDED TO CALL FOR ASSISTANCE AND THE NEED TO STAY IN HER ROOM. EASILY REDIRECTABLE, PLEASANT AND COOPERATIVE. PT SLEPT MOST OF THE NIGHT.
--- NOTE | 2021-06-24 08:29 | NUR ---
06/23/2021 - Sent referral to [facility]
--- NOTE | 2021-06-24 08:33 | NUR ---
Phone call to Ruel in Admissions for [facility] - Voice mail regarding bed availability.
[2021-06-24 09:01] VITALS: BP 126/73
--- NOTE | 2021-06-24 13:03 | NUR ---
ARMANDO spoke with DEVORAH at [facility]. They are intrest in the Pt and requested the DPOA document. They would not be able to accept the Pt until the 10 day quarantine is up. ARMANDO did fax the requested document. ARMANDO will need to follow up closer to the end of 10day isolation.
[2021-06-24 16:27] VITALS: BP 139/78
--- NOTE | 2021-06-24 16:36 | NUR ---
SPOKE WITH PATIENT ABOUT CONCERNS WITH DISCHARGE. PT HAD SEVERAL QUESTIONS ABOUT PROCESS AND WHAT WOULD HAPPEN THE DAY OF DISCHARGE. ALL QUESTIONS WERE ANSWERED TO PATIENT'S SATISFACTION. EDUCATION RE-ENFORCED.
--- NOTE | 2021-06-24 17:10 | NUR ---
SW reviewed chart and spoke with nursing and attending physician. Pt is progressing towards goals for discharge. Discharge is anticipated for Sunday, 06/27. Director of Case Mgmt spoke with pt's son, Delfino, earlier today. [facility] SW sent referrals to nursing facilities. Pt had positive COVID test on 06/21. SW spoke with Delfino via phone to follow up regarding discharge plan. Delfion states that he is not able to bring pt home, as they have several flights of stairs and the bathroom is on the top level. SW discussed options for homeless shelters if placement cannot be confirmed on Sunday. Pt's son verbalized understanding. SW to follow up with pt's son on Sunday morning to discuss discharge plan.
--- NOTE | 2021-06-24 17:15 | NUR ---
Discussed with psychiatry who agrees patient can discharge with son on 06-27-21. Called son and explained plan to discharge to his care. He is asking for homeless fpc information for his mother as he had discussed and was agreed upon by psychiatry. SW on medical unit notified son would not be able to pick up attendant until [phone] on 06-28-21. Informed per the record that son is now working with [facility] SW team and they too are looking at placement. Medical Case Management will defer at this time to plan of discharge care to [facility] team noting per medical team planned treatment completion for medical need is on 06-26-21. Will allow [facility] SW's to continue to work on discharge destination and planning. Medical SW notified.
[2021-06-24 20:01] VITALS: BP 102/77
--- NOTE | 2021-06-25 02:37 | NUR ---
PROGRESS PT ALERT AND ORIENTED TO SELF. PLEASANT AND COOPERATIVE THIS SHIFT. VSS. UP AD KARTIK VOIDING QS. DID NOT EXIT ROOM THIS SHIFT. TOOK HS MEDS AND THEN SLEPT THROUGH NIGHT WITHOUT DIFFICULTY.
[2021-06-25 05:19] VITALS: BP 101/62
[2021-06-25 07:34] VITALS: BP 94/50
--- NOTE | 2021-06-25 16:14 | HC ---
[facility] [place] [address] CONSULTATION Name: PACO QUIROGA Room #: 357-P ADM IN M.R.#: [id number] Admission: 06/22/21 Attend Phys: Brody Julian MD Discharge: Date of : 50 Report #: [id number] THIS REPORT FOR: cc: Dmitry Ba MD, Neal A. MD Kerstein,Adonis Rodriguez DO ~ DATE OF SERVICE: 06/23/2021 INPATIENT PSYCHIATRIC CL CONSULTATION PRIMARY ATTENDING: Brody Julian M.D. CONSULTING PSYCHIATRIST: Adonis Melchor, Domingo. REASON FOR CONSULTATION: Acute COVID-19 infection, dementia, un-resolved discharge plan. SOURCES OF INFORMATION: Interview with the patient at bedside; chart review; multiple discussions with different people including Dr. Julian, Dr. Dmitry Ba, Jessi Campos; the patient's son, Delfino; also the patient's floor nurse. CHIEF COMPLAINT: Unspecified. HISTORY OF PRESENT ILLNESS: This is a 71-year-old female who was originally brought to the Emergency Room sometime back around 06/07/2021. The patient was initially admitted to Geriatric Psychiatry, had been well behaved on the unit. We were having difficulty in placement as she was Medicaid pending and unfortunately developed acute COVID-19 infection and had to be discharged to the medical unit. The patient, at bedside this morning, is oriented to person and generally to place. She knows the day is . She states the month is January. When I have her look out the window at the snow, she says May, then tells it is obviously June. The patient was in good spirits today. I did discuss with her the gravity of this situation. We have had no viable resolution to her placement and that she will be uncovered from the standpoint of her medical hospitalization this coming 06/27/2021. I discussed that she will either need to stay with her son or potentially be at a motel or a [place]. The patient was understanding of this and appreciative for my help. Right after I left the patient's room, her son, Delfino, called me back. I discussed the situation with him. He said that [facility] would be willing to take her, but they did not have a bed. I discussed with him that would be great if they would take her by Sunday, but if they still do not have the bed, we are facing the prospect of discharge. The son claims that they do not have the space for her to stay with him; in the past son has stated home has stairs, which she has trouble with due to her gait abnormality. The son then stated she will [facility] [address] [place] [address] CONSULTATION Name: PACO QUIROGA Room #: 357-P ADM IN M.R.#: [id number] Admission: 06/22/21 Attend Phys: Brody Julian MD Discharge: Date of : 50 Report #: [id number] have to go to a homeless [place]. I discussed with the son that the patient had significant belongings at the home and she does. I personally feel that would be appropriate for the patient to obtain and change out belongings, so she is out fitted for winter first prior to being dropped at a homeless [place]. Information from the chart, the patient had been living with his son and his new . They had, had a landlord dispute and were homeless for several days prior to admission. Apparently, the patient was depressed, paranoid in the Emergency Room, but since she has been on the Geriatric Psychiatry Unit, she has been clean of affective and psychotic symptomatology and we just detected the dementia. Of note, her SLUMS score during her psychiatric admission was a 4/30. PAST MEDICAL HISTORY: fairly little. Include psoriatic arthritis of her right knee. Allergies: SULFA medications. SOCIAL HISTORY: No history of alcohol or recreational or tobacco use. Some past history of proteinuria, ketonuria, bilirubinuria. EKG done at time of her ER presentation showed a slightly prolonged QTc, which I believe did come down. DEVELOPMENTAL HISTORY: Born and raised in [place], [place]. Two sisters who are all just of brain cancer. She was . . She had a grandson who committed suicide. She is of the [employer] j[employer], not actively practicing. PAST SURGICAL HISTORY: Looks like no surgeries. REVIEW OF SYSTEMS: Brief 10-point review of systems was done today and negative except for her gait abnormality. PHYSICAL EXAMINATION: In bed, but propped upright. MENTAL STATUS EXAMINATION: Well-developed, unkempt-appearing female, appearing actually a little younger than stated age. Attention limited. Concentration limited. Speech normal in rate. Thought process: Linear and goal directed. Thought content: Focused on the present. Denied suicidal or homicidal ideation, auditory or visual type hallucinations. Denied helplessness, hopelessness. Mood and affect were okay, congruent, euthymic. Insight and judgment were limited. Fund of knowledge below average. FORMULATION: A 71-year-old female, now medically admitted for acute COVID-19 infection with a history of major neurocognitive disorder, likely [facility] [address] [place] [address] CONSULTATION Name: PACO QUIROGA Room #: 357-P [facility].#: [id number] Admission: 06/22/21 Attend Phys: Brody Julian MD Discharge: Date of : 50 Report #: [id number] Alzheimer's etiology. DIAGNOSES: At this time, major neurocognitive disorder without behavioral disturbance, likely Alzheimer's etiology, asymptomatic acute COVID-19 infection, genu varum deformity, abnormal gait, history of arthritis. RECOMMENDATIONS: Continue supportive care. Unfortunately, if there is no long-term care placement obtained by 06/27/2021, the patient should be discharged to a [place] or son's home. The [place] [employer] and Resources available have been depleted and unfortunately it is not uncommon for the lack of Medicaid approval to incubate less undesirable discharge plans. This is something that this author certainly does not have a solution for. There will be no CL Psychiatry this coming Sunday or Sunday, 06/25/2021 or 06/26/2021. I will check on the patient, 06/24/2021, which would be Sunday. Time spent on this given the numerous people I have to talk with was over 60 minutes today. Definitely, I would say greater than 75% of the time was spent on reviewing records and coordination of care. Also, for completeness, I am going to review her vital signs, temperature is 97.7, pulse 89, respirations 18, BP 129/73, O2 sat 97%. Last labs done on 06/20/2021, white count 7.7, H and H 10.4 and 31.3, platelet count 157. Chemistries from 06/20/2021, sodium 144, potassium 3.8, chloride 106, bicarbonate 30, anion gap 8, BUN 20, creatinine 0.7, estimated GFR 82. A1c is from early June. Calcium 8.3. I think it is because of COVID, her troponin high sensitivity on 06/20/2021 was 81 and also, just to note back from 06/08/2021, her vitamin D was absolutely low at 6.1. She is on 5000 International Units daily replacement as well as with calcium. She had no urinary tract infection and her COVID tests were negative on 06/07/2021, 06/10/2021, 06/12/2021, 06/15/2021, 06/18/2021, but positive on 06/21/2021. Thank you for allowing me to participate in her care. <ELECTRONICALLY SIGNED> By: Adonis Melchor DO 06/25/21 1614 1336 11 Adonis Melchor DO /nt
--- NOTE | 2021-06-25 18:41 | NUR ---
PT A&OX2 PERSON AND PLACE INTACT. VSS, TEARFUL AT TIMES DUE TO ISOLATION FROM FRIEND/FAMILY. RECIEVED CALL FROM SON X2. INITIAL CALL SON WAS ANGRY AND YELLING. CALL #2 SON WAS APOLOGETIC FOR INITIAL CALL. SON UPDATED AND PLAN OF CARE PROVIDED TO HIM.
[2021-06-25 19:46] VITALS: BP 142/65
--- NOTE | 2021-06-26 04:12 | NUR ---
PROGRESS PT A/O X3 TO 4. VSS. LUNGS CLEAR ABDOMEN SOFT WITH POSITIVE BS. PULSES 2/1. SKIN C/D/I. PT ABLE TO PERFORM ADLS INDEPENDENTLY. WAS PLEASANT AND COOPERATIVE WITH CARES. TOOK HS MEDS AND THEN WENT TO BED AND SLEPT THROUGH NIGHT WITHOUT INTERRUPTION.
[2021-06-26 07:58] VITALS: BP 116/64
[2021-06-26 15:39] VITALS: BP 121/73
--- NOTE | 2021-06-26 18:19 | NUR ---
PT A/O X 3, UNAWARE OF DATE. PT PLEASANT AND COOPERATIVE. NO COMPLAINTS OF PAIN, NAUSEA, SOA. DC TO SNF FACILITY Sunday06/27/21. FALL PRECAUTIONS IN PLACE. WILL CONTINUE TO MONITOR.
[2021-06-26 19:24] VITALS: BP 135/61
[2021-06-27 03:20] VITALS: BP 113/66
--- NOTE | 2021-06-27 05:21 | NUR ---
PT MAKING SLOW PROGRESS TOWARDS GOALS. NO FEVER NOTED. PT DENIED ANY COMPLAINTS. DID SPEAK BRIEFLY ABOUT A DOCTOR IN ER THAT TOLD HER THAT SHE ONLY HAD 13 MONTHS TO LIVE.
[2021-06-27 07:20] VITALS: BP 140/73
--- NOTE | 2021-06-27 15:00 | NUR ---
ARMANDO reviewed chart and spoke with nursing and attending physician. Pt remains in Enhanced Isolation due to COVID. Enhanced Isolation to be discontinued on 07/01/2021 per chart. Pt is asymptomatic. ARMANDO discussed case with Director of Case Mgmt. Efforts to find placement continue. ARMANDO faxed referral to [facility] post-acute liaison for review. ARMANDO obtained [place] ppwk and [place] bree from [facility] ARM[facility]. ARMANDO spoke with [facility] in admissions at [facility] in [place]. ARMANDO faxed referral info to [facility] for review. Awaiting input from facilities at this time. ARMANDO left voice message for pt's son, Delfino, to provide update. PT/OT evals ordered today. ARMANDO updated nursing and attending physician. ARMANDO is following to assist as needed with discharge planning.
--- NOTE | 2021-06-27 15:22 | NUR ---
ASSUMED PT CARE AT 0700. PT HAS BEEN WITOUT DISTRESS. PT IS AWAITING PLACEMENT.
[2021-06-27 16:19] VITALS: BP 123/59
[2021-06-27 19:33] VITALS: BP 138/63
[2021-06-28 07:38] VITALS: BP 123/74
[2021-06-28 09:01] VITALS: BP 109/85
[2021-06-28 17:04] VITALS: BP 140/79
--- NOTE | 2021-06-28 17:14 | NUR ---
PT/OT gely faxed to Jacinto in admissions at [facility] to start ins auth for snf stay when her ISO is dc'd on Sunday. Will follow.
[2021-06-28 19:42] VITALS: BP 131/77
--- NOTE | 2021-06-29 05:43 | NUR ---
PT MAKING PROGRESS TOWARDS GOALS. NO FEVERS. DENIED ANY CHILLS, COUGH OR SOA.
[2021-06-29 06:55] VITALS: BP 118/66
--- NOTE | 2021-06-29 09:16 | NUR ---
Assess length of stay. Pt had been on [facility] unit and required admit to acute floor for +covid test. Eating 100% of meals, wts variable but within pt reported usual wt range around 115 lb. Has Ensure ordered which consumes around 50%. Pt awaiting placement. Presents low nutrition risk
--- NOTE | 2021-06-29 14:04 | NUR ---
ASSUMED CARE OF PT AT 0700, VSS. PT AOX2-3. FORGETFUL, HALLUCINATORY. UP AD KARTIK IN ROOM, AWAITING 10 DAY ISOLATION BEFORE PLACEMENT AT FACILITY. TENTATIVE PLAN IS TO DISCHARGE ON THE . WILL CONTINUE TO MONITOR AND REORIENT PT.
--- NOTE | 2021-06-29 15:26 | NUR ---
ARMANDO reviewed chart and spoke with nursing and attending physician. Pt remains in Enhanced Isolation due to COVID. Pt is afebrile and on room air. ARMANDO received voice message from pt's son, Delfino, stating [facility] is too far away. ARMANDO returned call and left voice message for Delfino, stating that at this time, [facility] is the only accepting facility. ARMANDO faxed updates to Cat with the [facility] facilities to see if they will accept pt. Per Cat, they will not accept pt as skilled, as they do not feel she is a skilled candidate. Cat is waiting to hear back if any of their facilities would consider pt as LTC Medicaid pending. DPOA ppwk and Medicaid bree faxed to [facility] for review. ARMANDO left voice message for Milena at [facility] to see if they are taking new admissions-Medicaid pending. ARMANDO faxed referral to [facility] for review. Unable to leave voice message for [facility], due to mailbox not being set up. Facility not answering the phone. SW to follow up with [facility] at a later time. ARMANDO is following to assist as needed with discharge planning.
[2021-06-29 15:33] VITALS: BP 114/71
[2021-06-29 19:44] VITALS: BP 139/80
--- NOTE | 2021-06-30 06:15 | NUR ---
Patient is alert and oriented x2. Patient is on enhanced precautions. Patient is on room air. Patient is continent this shift. Patient has no IV access. Patient will continue to be monitored.
[2021-06-30 07:01] VITALS: BP 111/58
--- NOTE | 2021-06-30 09:48 | NUR ---
Left a message for son Delfino ([phone]) to return a call at [phone] over his expressed concerns of now found placement. Asked that he call me directly. Will follow up to assure this conversation is completed and will keep the SW updated as well.
[2021-06-30 15:14] VITALS: BP 119/68
--- NOTE | 2021-06-30 15:31 | NUR ---
ARMANDO reviewed chart and spoke with nursing and attending physician. Pt remains in Enhanced Isolation due to COVID. Pt is progressing towards goals for discharge. Discharge to [facility] in [place] is anticipated for tomorrow. ARMANDO faxed updated clincal info and therapy note for review. ARMANDO spoke with Jacinto in admissions, who confirms they are able to accept pt tomorrow. They will not have transportation available. SW to arrange transportation. ARMANDO spoke with Nabila in admissions at [facility] to follow up on referral. Nabila has reviewed pt's info. Additional information regarding pt's financial status requested. Nabila will need this info prior to continuing on with referral. ARMANDO left pt's son, Delfino, a voice message requesting call back to assist with info. Pt to discharge tomorrow. ARMANDO is following to assist as needed with discharge planning.
[2021-06-30 19:00] VITALS: BP 128/76
--- NOTE | 2021-07-01 04:04 | NUR ---
PROGRESS PT A/O X4. UP AD KARTIK GAIT STEADY DENIES PAIN. ISOLATION ENDS AT MIDNIGHT PT EXPECTED TO TRANSFER TO [facility] TOMORROW. CONTINUE PLAN OF CARE.
[2021-07-01 04:20] VITALS: BP 108/65
[2021-07-01 07:14] VITALS: BP 104/54
--- NOTE | 2021-07-01 11:58 | NUR ---
DISCHARGE NOTE: ARMANDO reviewed chart and spoke with nursing and attending physician. Enhanced Isolation precautions have been discontinued. Pt is medically stable for discharge to post-acute care today. ARMANDO has not received call back from pt's son. [facility] was reviewing pt's info, but need additional financial information. ARMANDO notified by [facility] that [facility] had contacted them to see if pt still needs placement. ARMANDO spoke with Jessi at [facility], who states they can only accept pt if she has been fully vaccinated. ARMANDO met with pt at bedside to discuss discharge plan. Pt is aware and agreeable with plan. ARMANDO provided pt with name and phone number of [facility]. Pt was unable to confirm that she has been vaccinated for COVID. ARMANDO explained that transportation will arrive between 2335-0081 today. ARMANDO arranged transportation through [employer]. Pt's belongings to be sent with her. ARMANDO faxed discharge ppwk to [facility] and confirmed info was received with Jacinto in admissions. ARMANDO notified Jacinto of transportation time. Director of Case Mgmt to notify pt's son, Delfino, of transportation arrangements. Pt's son to contact [facility] SW if alternate placement is needed. Chart copy ordered. Nursing provided with number to call report. No additional SW needs identified at this time. ARMANDO is available to assist should needs arise.
--- NOTE | 2021-07-01 12:28 | NUR ---
Spoke with son Delfino at [phone] at 1228 and confirmed that he was in agreement with plan of discharge and confirmed this with the SW. Please see previous CM note on questions concerning discharge today.
--- NOTE | 2021-07-01 14:28 | NUR ---
RN ASSUMED PT'S CARE AT 0700-1420PM, PT IS A&OX3 ( PERSON, PLACE AND TIME), PT CAN FOLLOW COMMANDS, PT IS ON ROOM AIR , PT'S VS ARE STABLE, PT DENIES PAIN AND SOB, PT IS OFF COVID ISOLATION TODAY, RN RECEIVED ORDER TO DC PT TO SNF TODAY, TRANSPORTATION STAFF HAVE [facility] PT AT [facility], RN HAS GIVING REPORT TO SNF. HAS NOTIFIED PT'S SON ABOUT PT DC TO SNF TODAY.
== END 2021-07-01 14:20 | DRG 177 ==
LOC: 3W 12:36
PROVIDERS: ADMIT Internal Medicine; ATTEND Internal Medicine
DX: U07.1 COVID-19 (principal); E43 Unspecified severe protein-calorie malnutrition; F01.51 Vascular dementia, unspecified severity, with behavioral disturbance; F32.A Depression, unspecified; R53.81 Other malaise; R26.9 Unspecified abnormalities of gait and mobility; L40.50 Arthropathic psoriasis, unspecified; M21.10 Varus deformity, not elsewhere classified, unspecified site; M17.12 Unilateral primary osteoarthritis, left knee; E55.9 Vitamin D deficiency, unspecified; Z88.2 Allergy status to sulfonamides; Z79.899 Other long term (current) drug therapy; Z68.20 Body mass index [BMI] 20.0-20.9, adult
CPT/HCPCS: 10779